=== PATIENT | male | born 1985 | race Caucasian/White ===

== ENCOUNTER 2018-08-17 11:54 | Emergency (ER) | payer OTHER ==
[2018-08-17] MEDS ORDERED: DIPHENHYDRAMINE HCL 50 MG/ML VIAL IV ONE ×3 (12:00→15:00)
[2018-08-17] MEDS ORDERED: METHYLPREDNISOLONE INJ 125 MG/2 ML SDV IV ONE (12:00)
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
[2018-08-17 16:29] VITALS: BP 121/84
== END 2018-08-17 16:28 | disposition home or self-care (01) ==
LOC: ER 11:54
DX: T63.441A Toxic effect of venom of bees, accidental (unintentional), initial encounter (principal); T78.40XA Allergy, unspecified, initial encounter; R06.02 Shortness of breath; R21 Rash and other nonspecific skin eruption; R11.0 Nausea
CPT/HCPCS: 96376; 99283; 96374; 96375; J1200; J2930

== ENCOUNTER 2018-09-26 09:22 | Emergency (ER) | payer OTHER ==
[2018-09-26] MEDS ORDERED: METHYLPREDNISOLONE INJ 125 MG/2 ML SDV IV ONE (09:32)
[2018-09-26] MEDS ORDERED: FAMOTIDINE INJ/PF 20 MG/2 ML SDV IV ONE (09:32)
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
[2018-09-26 11:21] VITALS: BP 122/65
== END 2018-09-26 11:23 | disposition home or self-care (01) ==
LOC: ER 09:22
DX: T78.40XA Allergy, unspecified, initial encounter (principal); T63.461A Toxic effect of venom of wasps, accidental (unintentional), initial encounter; Y92.9 Unspecified place or not applicable; F17.200 Nicotine dependence, unspecified, uncomplicated
CPT/HCPCS: 99282; 96374; 96375; J2930; S0028

== ENCOUNTER 2019-02-02 19:17 | Emergency (ER) | payer OTHER ==
[2019-02-02] MEDS ORDERED: ASPIRIN 81 MG TABLET, CHEWABLE PO ONE (19:31)
[2019-02-02] MEDS ORDERED: MAG HYDROX/AL HYDROX/SIMETH SUSP 30 ML UDCUP PO ONE (19:32)
[2019-02-02] MEDS ORDERED: LIDOCAINE 2% VISCOUS SOLN 20 ML UDCUP PO ONE (19:32)
--- NOTE | 2019-02-02 19:33 | ER Document Report ---
ED Medical Screen (RME) - General Chief Complaint: Chest Pain Stated Complaint: CHEST PAIN Time Seen by Provider: 02/02/19 19:29 Primary Care Provider: ANNIKA WATTS [Primary Care Provider] - Follow up as needed Information source: Patient Notes: Patient states that he drank a Monster drink and then started to develop chest pain. Patient states pain started 4 hours ago. Patient does complain of some nausea no shortness of breath no cough or cold symptoms. I have greeted and performed a rapid initial assessment of this patient. A comprehensive ED assessment and evaluation of the patient, analysis of test results and completion of the medical decision making process will be conducted by additional ED providers. TRAVEL OUTSIDE OF THE [place] IN LAST 30 DAYS: No - Related Data Allergies/Adverse Reactions: bee sting Allergy (Uncoded 09/26/18 09:23) Past Medical History Renal/ Medical History: Denies: Hx Peritoneal Dialysis Physical Exam - Vital signs Vitals: Temp Pulse Resp BP Pulse Ox 98.2 F 83 18 141/87 H 96 02/02/19 19:28 02/02/19 19:28 02/02/19 19:28 02/02/19 19:28 02/02/19 19:28 - Cardiovascular Rhythm: Regular Heart sounds: S1 appreciated, S2 appreciated - Abdominal Tenderness: Tender - Gastric tenderness Course - Vital Signs Vital signs: Temp Pulse Resp BP Pulse Ox 98.2 F 83 18 141/87 H 96 02/02/19 19:28 02/02/19 19:28 02/02/19 19:28 02/02/19 19:28 02/02/19 19:28 Doctor's Discharge - Discharge Referrals: ANNIKA WATTS [Primary Care Provider] - Follow up as needed
--- NOTE | 2019-02-02 19:56 | RADIOLOGY REPORT (SQ) ---
EXAM DESCRIPTION: CHEST 2 VIEWS COMPLETED DATE/TIME: 02/02/2019 7:43 pm REASON FOR STUDY: cp COMPARISON: None. EXAM PARAMETERS: NUMBER OF VIEWS: two views TECHNIQUE: Digital Frontal and Lateral radiographic views of the chest acquired. RADIATION DOSE: NA LIMITATIONS: none FINDINGS: LUNGS AND PLEURA: No opacities, masses or pneumothorax. No pleural effusion. MEDIASTINUM AND HILAR STRUCTURES: No masses or contour abnormalities. HEART AND VASCULAR STRUCTURES: Heart normal size. No evidence for failure. BONES: No acute findings. HARDWARE: None in the chest. OTHER: No other significant finding. IMPRESSION: NO ACUTE RADIOGRAPHIC FINDING IN THE CHEST. TECHNICAL DOCUMENTATION: JOB ID: [id number] [employer]- All Rights Reserved Reading location - IP/workstation name: [email or web address]
[2019-02-02 20:10] LABS: HEMATOCRIT 53.3 % (37.9-51.0); HEMOGLOBIN 17.9 g/dL (13.5-17.0); MEAN CORPUSCULAR HGB CONC 33.5 g/dL (32.0-36.0); MEAN CORPUSCULAR VOLUME 84 fl (80-97); PLATELET COUNT 301 10^3/uL (150-450); RED BLOOD COUNT 6.38 10^6/uL (4.35-5.55); RED CELL DISTRIBUTION WIDTH 15.2 % (11.5-14.0); WHITE BLOOD COUNT 22.3 10^3/uL (4.0-10.5)
[2019-02-02 20:18] LABS: ALBUMIN 4.6 g/dL (3.5-5.0); ALKALINE PHOSPHATASE 78 U/L (38-126); ANION GAP 10 (5-19); ASPARTATE AMINO TRANSFERASE 22 U/L (17-59); BILIRUBIN,DIRECT 0.1 mg/dL (0.0-0.4); BILIRUBIN,TOTAL 0.6 mg/dL (0.2-1.3); BLOOD UREA NITROGEN 9 mg/dL (7-20); CARBON DIOXIDE 25 mmol/L (22-30); CHLORIDE 104 mmol/L (98-107); GLUCOSE 99 mg/dL (75-110); TOTAL PROTEIN 7.5 g/dL (6.3-8.2)
[2019-02-02 20:39] LABS: ABSOLUTE LYMPHOCYTES# (MANUAL) 2.9 10^3/uL (0.5-4.7); ABSOLUTE MONOCYTES # (MANUAL) 1.1 10^3/uL (0.1-1.4); BASOPHILS % (MANUAL) 0 % (0-2); EOSINOPHILS % (MANUAL) 0 % (0-6); LYMPHOCYTES % (MANUAL) 13 % (13-45); MONOCYTES % (MANUAL) 5 % (3-13); PLATELET COMMENT ADEQUATE; PLATELET GIANT PRESENT; RBC MORPHOLOGY COMMENT NORMO-CYTIC/CHROMIC; SEGMENTED NEUTROPHILS % (MAN) 82 % (42-78); TOTAL CELLS COUNTED 100
--- NOTE | 2019-02-02 22:12 | ER Document Report ---
ED General - General Chief Complaint: Chest Pain Stated Complaint: CHEST PAIN Time Seen by Provider: 02/02/19 19:29 Primary Care Provider: ANNIKA WATTS [Primary Care Provider] - Follow up as needed Notes: 33-year-old male presents emergency department complaining of sudden onset chest pain around 1400 or 1500 this afternoon that happened after he drank his third or fourth monster energy drink of the day. States that it feels like an alien was trying to explode out of his chest. States that it worsened anytime he t ried to swallow or or inhale, states that it has now resolved after receiving a GI cocktail. Denies any prior symptoms similar to this, denies any nausea, vomiting, diarrhea, shortness of breath or fevers. Denies any history of GI bleed or GERD. TRAVEL OUTSIDE OF THE [place] IN LAST 30 DAYS: No - Related Data Allergies/Adverse Reactions: bee sting Allergy (Uncoded 09/26/18 09:23) Past Medical History - General Information source: Patient - Social History Smoking Status: Current Every Day Smoker Chew tobacco use (# tins/day): No Frequency of alcohol use: Social Drug Abuse: None Family History: Reviewed & Not Pertinent Patient has suicidal ideation: No Patient has homicidal ideation: No Renal/ Medical History: Denies: Hx Peritoneal Dialysis Review of Systems - Review of Systems Constitutional: No symptoms reported EENT: No symptoms reported Cardiovascular: See HPI Respiratory: See HPI Gastrointestinal: See HPI -: Yes All other systems reviewed and negative Physical Exam - Vital signs Vitals: Temp Pulse Resp BP Pulse Ox 98.2 F 83 18 141/87 H 96 02/02/19 19:28 02/02/19 19:28 02/02/19 19:28 02/02/19 19:28 02/02/19 19:28 Interpretation: Hypertensive - Notes Notes: GENERAL: Alert, interacts well. No acute distress. HEAD: Normocephalic, atraumatic EYES: Pupils equal, round and reactive to light, extraocular movements intact. ENT: Oral mucosa moist, tongue midline. NECK: Full range of motion, supple, trachea midline. LUNGS: Clear to auscultation bilaterally, no wheezes, rales or rhonchi, no respiratory distress. HEART: Regular rate and rhythm, no murmurs, gallops, rubs. ABDOMEN: Soft, nontender, nondistended, bowel sounds present in all 4 quadrants. EXTREMITIES: Moves all 4 extremities spontaneously, no edema, radial and dorsalis pedis pulses 2/4 bilaterally. No cyanosis. NEUROLOGICAL: Alert and oriented x3, normal speech, biceps and patellar DTRs 2+ bilaterally. PSYCH: Normal mood, normal affect. SKIN: Warm, Dry, normal turgor, no rashes or lesions noted. Course - Re-evaluation Re-evalutation: 02/02/19 22:14 CBC shows leukocytosis of 22.3, at least some of this is hemoconcentration with hemoglobin of 17.9, platelets normal, CMP unremarkable, lipase normal, cardiac enzymes negative, chest x-ray shows no acute process, EKG is nonischemic. Patient symptoms are completely resolved with GI cocktail. Discussed with patient that I do not know exactly why his white blood cell count is elevated, asked him to have it rechecked in 1 to 2 weeks to ensure that it is trending downward and not upward. Discussed with patient that he needs to drink fewer monster energy drinks or a very least alternate them with water. Discussed the possibility that this is likely coming from GERD/esophagitis. Patient will start taking Pepcid 20 mg twice a day for the next 2 weeks and then decrease to once a day the next 2 weeks after that and then stop. He will follow-up with his primary care physician if his pain comes back. He will also return for fevers, cough or any new symptoms that might help us to further explain the leukocytosis. - Vital Signs Vital signs: Temp Pulse Resp BP Pulse Ox 98.2 F 83 18 141/87 H 96 02/02/19 19:28 02/02/19 19:28 02/02/19 19:28 02/02/19 19:28 02/02/19 19:28 - Laboratory Result Diagrams: 02/02/19 19:39 02/02/19 19:39 Laboratory results interpreted by me: 02/02/19 19:39 WBC 22.3 H RBC 6.38 H Hgb 17.9 H Hct 53.3 H RDW 15.2 H Seg Neuts % (Manual) 82 H Abs Neuts (Manual) 18.3 H - EKG Interpretation by Me Additional EKG results interpreted by me: 02/02/19 22:15 EKG shows sinus rhythm at a rate of 86, normal axis, borderline prolonged QT interval at 479, no ST segment elevations or depressions, there are T wave inversions noted in lead III which is nonspecific, rapid R wave progression per my interpretation. Discharge - Discharge Clinical Impression: Chest pain with low risk for cardiac etiology Leukocytosis, unspecified Qualifiers: Leukocytosis type: unspecified Qualified Code(s): D72.829 - Elevated white blood cell count, unspecified Condition: Stable Disposition: HOME, SELF-CARE Additional Instructions: Chest Pain of Unclear Cause The exact cause of your chest pain isn't clear. Fortunately, there is no evidence of a dangerous medical condition. Further testing may be required to find the source of the pain. Most often, we find that this pain is coming from the chest wall -- the muscles or rib joints in the chest. But chest pain can come from the lung and lung lining, the esophagus, the heart valves or heart lining, and even the stomach or gallbladder. Rest. Eat lightly until the pain is gone. We may prescribe medicine for pain and inflammation. You should call the physician immediately if the pain radiates to the shoulder, jaw or arms; if you start to run a fever or develop a cough; or if you develop shortness of breath, or other new or alarming symptoms. Reflux Disease (GERD) Gastro-Esophageal Reflux Disease (GERD) is caused by stomach acid refluxing back up into the esophagus. The valve at the end of the esophagus may be weak. This is common in persons with a hiatal hernia. GERD symptoms can include indigestion, chest pain, heartburn, or food "sticking." Certain foods, alcohol, and aspirin can make GERD worse. Treatment depends on the severity. Usually, antacids or acid-suppressing medicines are used. When the esophagus is acutely inflamed, the physician will often prescribe membrane-protective drugs such as Carafate. Some patients benefit from medication such as Reglan that tightens the valve at the top of the stomach. Avoid those foods that bring on your symptoms. For many people, these foods are coffee, chocolate, onions, garlic, and carbonated drinks. Don't use alcohol, aspirin, caffeine, or tobacco. Don't eat late at night -- within 4 hours of bedtime. Don't over-eat. If necessary, elevate the head of your bed about 4 inches so that stomach acid will not roll up into your esophagus. Call the doctor if you develop severe chest pain, inability to swallow fluids, fever, or worsening symptoms. Please take Pepcid or its generic equivalent famotidine 20 mg twice a day for the next 2 weeks. After 2 weeks you may decrease to once a day for symptoms have resolved. 2 weeks after that you should stop taking it if your symptoms have resolved. If your symptoms have improved but not resolved please continue taking it once a day and follow-up with your primary care physician. Please at least alternate your monster energy drinks with a glass of water between every Monster energy drink. Please consider decreasing the number of Monster energy drinks that you drink. Finally you did have an elevated white blood cell count today it was 22.3. I did not find a source of infection or reason why would be elevated. Is important for you to follow-up with your primary care physician to have it rechecked in the next 1 to 2 weeks. If prior to that you develop fever, cough, shortness of breath, vomiting or any new or concerning symptoms please return to the emergency department. [facility]errals: [facility] [[facility]] - Follow up as needed
[2019-02-02 22:22] VITALS: BP 132/92
--- NOTE | 2019-02-03 23:42 | EKG REPORT ---
SEVERITY:- BORDERLINE ECG - SINUS RHYTHM BORDERLINE PROLONGED QT INTERVAL : Confirmed by: Renetta Enrique 03-Feb-2019 23:41:33
== END 2019-02-02 22:27 | disposition home or self-care (01) ==
LOC: ER 19:17
DX: R07.9 Chest pain, unspecified (principal); D72.829 Elevated white blood cell count, unspecified; F17.200 Nicotine dependence, unspecified, uncomplicated; Z91.030 Bee allergy status
CPT/HCPCS: 93005; 99285; 36415; 83690; 85025; 80053; 84484; 71046; 93010; J3490